=== PATIENT | female | born 1945 | race Caucasian/White ===

== ENCOUNTER → 2017-07-22 | Outpatient (CLI) | payer MEDICARE, BC ==
[~2017-07-22] MED LIST: AMLO10 PO; ATEN50 PO; BENAML20/5 PO; CALCAVITD PO; CHLO4 PO; CONESTTC PV; ESTR2 PO; FISH1000 PO; FOLI400 PO; GABA300 PO; GUAI600T33 PO; LANS30EC PO; MULVITMIND PO; NITR.6SL SL; RANI150 PO; SELENIUM PO; TRILIPIX; VALA500 PO; ZOLP10 PO
[2017-07-22 16:26] LABS: Albumin, Blood 3.5 g/dL (3.4-5.0); Anion Gap 8 mmol/L (6-16); Blood Urea Nitrogen 20 mg/dL (8-24); Bun/Creatinine Ratio 21.5 (12.0-20.0); CO2, Blood 23 mmol/L (21-32); Chloride, Blood 109 mmol/L (98-108); Creatinine, Blood 0.93 mg/dL (0.40-1.00); Glomerular Filtration Rate >60 (60-); Glucose, Blood 98 mg/dL (70-99); Phosphorus, Blood 3.2 mg/dL (2.5-4.9); Potassium, Blood 3.7 mmol/L (3.5-5.5); Sodium, Blood 140 mmol/L (136-145)
[2017-07-22 19:59] LABS: Protein, Urine Random 34.9 mg/dL (0.0-11.9)
== END ==
LOC: OLS 14:59
PROVIDERS: Internal Medicine
DX: N18.3 Chronic kidney disease, stage 3 (moderate) (principal)
CPT/HCPCS: 36415; 80069; 82570; 84156

== ENCOUNTER → 2018-03-13 | Outpatient (CLI) | payer MEDICARE, BC | END | disposition home or self-care (01) | LOC: LAB SHORT 16:38 → LAB 16:38 | DX: R30.0 Dysuria (principal) | CPT/HCPCS: 87086 ==

== ENCOUNTER 2019-12-06 00:52 | Observation (INO) | payer MEDICARE, BC ==
[~2019-12-06] VITALS: Ht 167.6 cm; Wt 79.1 kg
[~2019-12-06 00:52] MED LIST changes: +Amlodipine-Ben1 EACH PO; -BENAML20/5 PO; -CALCAVITD PO; +Calcium 600-D1 EACH PO; +FISH OIL 1,001000 MG PO; -FISH1000 PO; +Hair, Skin & N1 EACH PO; -MULVITMIND PO
[2019-12-06 01:27] LABS: BASOPHILS ABSOLUTE AUTO 0.03 K/mm3 (0.00-0.23); BASOPHILS PERCENT AUTO 1 % (0-2); EOSINOPHILS ABSOLUTE AUTO 0.24 K/mm3 (0.00-0.68); EOSINOPHILS PERCENT AUTO 4 % (0-6); Hematocrit 34.5 % (33.0-51.0); Hemoglobin 11.3 g/dL (11.5-16.0); IMMATURE GRAN PERCENT AUTO 0 % (0-1); LYMPHOCYTES PERCENT AUTO 52 % (21-46); MONOCYTES ABSOLUTE AUTO 0.47 K/mm3 (0.16-1.47); MONOCYTES PERCENT AUTO 8 % (4-13); Mean Corpuscular HGB 32.6 pg (26.0-34.0); Mean Corpuscular HGB Conc 32.8 g/dL (31.5-36.5); Mean Corpuscular Volume 99 fL (80-100); Mean Platelet Volume 11.2 fL (9.1-12.4); NEUTROPHILS ABSOLUTE AUTO 2.04 K/mm3 (1.96-9.15); NEUTROPHILS PERCENT AUTO 35 % (41-73); Platelet Count 317 K/mm3 (150-400); RDW Coefficient Variation 13.3 % (11.7-14.2); RDW Standard Deviation 48.3 fL (35.1-46.3); Red Blood Cell Count 3.47 M/mm3 (3.80-5.20); White Blood Cell Count 5.78 K/mm3 (4.00-11.30)
[2019-12-06 01:46] LABS: Alanine Aminotransfer (ALT/SGP 18 U/L (12-78); Albumin, Blood 3.6 g/dL (3.4-5.0); Albumin/Globulin Ratio 1.1 (0.8-1.8); Alk Phos 33 U/L (50-136); Anion Gap 7 mmol/L (6-16); Aspartate Aminotrans (AST/SGOT 19 U/L (12-37); Bilirubin, Total 0.3 mg/dL (0.1-1.0); Blood Urea Nitrogen 20 mg/dL (8-24); Bun/Creatinine Ratio 19.4 (12.0-20.0); CO2, Blood 25 mmol/L (21-32); Calcium, Blood 8.8 mg/dL (8.5-10.1); Chloride, Blood 111 mmol/L (98-108); Creatinine, Blood 1.03 mg/dL (0.40-1.00); Globulin, Blood 3.2 g/dL (2.2-4.0); Glomerular Filtration Rate 56 (60-); Glucose, Blood 121 mg/dL (70-99); Potassium, Blood 3.5 mmol/L (3.5-5.5); Sodium, Blood 143 mmol/L (136-145); Total Protein, Blood 6.8 g/dL (6.4-8.2); Troponin I <0.015 ng/mL (0.000-0.040)
[2019-12-06] MEDS ORDERED: FENOFIBRIC ACI135 MG PO (03:09)
[2019-12-06] MEDS ORDERED: ACYC800 PO (03:11)
[2019-12-06] MEDS ORDERED: HYDCHL25 PO (03:17)
[2019-12-06] MEDS ORDERED: GABA100 PO (04:22)
[2019-12-06] MEDS ORDERED: NITR.4SL PO (04:25)
[2019-12-06] MEDS ORDERED: ZOLP10 PO (04:26)
[2019-12-06] MEDS ORDERED: VALA500 PO (04:32)
--- NOTE | 2019-12-06 05:59 | NUR ---
12/06/19 0550 PT STABLE WITH VITALS AND HEART MONITOR AT "SR WITH FIRST DEGREE AT 65". PT IS SNORING AND APPEARS COMFORTABLE. VITALS STABLE. ONLY MILD CHEST DISCOMFORT AT LEVEL "3".
[2019-12-06 10:00] LABS: BASOPHILS ABSOLUTE AUTO 0.04 K/mm3 (0.00-0.23); BASOPHILS PERCENT AUTO 1 % (0-2); EOSINOPHILS PERCENT AUTO 6 % (0-6); Hemoglobin 11.8 g/dL (11.5-16.0); IMMATURE GRAN ABSOLUTE AUTO 0.01 K/mm3 (0.00-0.10); IMMATURE GRAN PERCENT AUTO 0 % (0-1); LYMPHOCYTES ABSOLUTE AUTO 2.37 K/mm3 (0.84-5.20); LYMPHOCYTES PERCENT AUTO 45 % (21-46); MONOCYTES ABSOLUTE AUTO 0.39 K/mm3 (0.16-1.47); MONOCYTES PERCENT AUTO 7 % (4-13); Mean Corpuscular HGB Conc 32.8 g/dL (31.5-36.5); Mean Corpuscular Volume 101 fL (80-100); Mean Platelet Volume 11.3 fL (9.1-12.4); NEUTROPHILS ABSOLUTE AUTO 2.17 K/mm3 (1.96-9.15); NEUTROPHILS PERCENT AUTO 41 % (41-73); Platelet Count 305 K/mm3 (150-400); RDW Coefficient Variation 13.4 % (11.7-14.2); RDW Standard Deviation 49.9 fL (35.1-46.3); Red Blood Cell Count 3.58 M/mm3 (3.80-5.20); White Blood Cell Count 5.28 K/mm3 (4.00-11.30)
[2019-12-06 10:28] LABS: Alanine Aminotransfer (ALT/SGP 17 U/L (12-78); Albumin, Blood 3.7 g/dL (3.4-5.0); Albumin/Globulin Ratio 1.2 (0.8-1.8); Alk Phos 31 U/L (50-136); Anion Gap 5 mmol/L (6-16); Aspartate Aminotrans (AST/SGOT 20 U/L (12-37); Bilirubin, Total 0.4 mg/dL (0.1-1.0); Blood Urea Nitrogen 15 mg/dL (8-24); Bun/Creatinine Ratio 17.8 (12.0-20.0); CO2, Blood 26 mmol/L (21-32); CPK Creatine Kinase 75 U/L (26-193); Calcium, Blood 8.8 mg/dL (8.5-10.1); Chloride, Blood 111 mmol/L (98-108); Creatinine, Blood 0.84 mg/dL (0.40-1.00); Globulin, Blood 3.2 g/dL (2.2-4.0); Glomerular Filtration Rate >60 (60-); Glucose, Blood 116 mg/dL (70-99); Potassium, Blood 3.3 mmol/L (3.5-5.5); Sodium, Blood 142 mmol/L (136-145); Total Protein, Blood 6.9 g/dL (6.4-8.2); Troponin I <0.015 ng/mL (0.000-0.040)
--- NOTE | 2019-12-06 12:17 | NUR ---
Upon receiving an admit referral for spiritual care, I visit patient. Patient immediately tells me about her medical condition, her young and her family. Patient tells me of the many deaths of family members and her prior . Patient talks about the many chances she has had to know bring hope and good news to people all over the world. Patient is full of light and gratitude. I listen empathically, reinforce helpful attitueds and practices and provide grief support, pastoral assistant corporation counsel and prayer. Patient responds well and shows signs of encouragement. I will continue to remain available to patient and family.
[2019-12-06] MEDS ORDERED: ASPI81CH PO (12:32)
--- NOTE | 2019-12-06 13:08 | NUR ---
DISCHARGE NOTE PT ALERT AND ORIENTED THROUGHOUT THIS SHIFT. PT STATED RESOLUTION OF CHEST PAIN EARLY IN THIS SHIFT WITH NO RECURRING EPISODES. IV REMOVED PRIOR TO DISCHARGE. PT PROVIDED DISCHARGE INSTRUCTIONS AND EDUCATION. PT STATES NO QUESTIONS AT THIS TIME. PT TRANSPORTED TO VEHICLE BY CINTIA Norris CNA, PROVIDING TRANSPORTION HOME.
== END 2019-12-06 13:01 | disposition home or self-care (01) ==
LOC: ER 00:52 → MEDS 00:53
PROVIDERS: Emergency Medicine; ADMIT Internal Medicine
DX: R07.89 Other chest pain (principal); I10 Essential (primary) hypertension; E78.5 Hyperlipidemia, unspecified; J30.9 Allergic rhinitis, unspecified; M54.2 Cervicalgia; G89.29 Other chronic pain; Z79.82 Long term (current) use of aspirin; Z79.899 Other long term (current) drug therapy; Z88.2 Allergy status to sulfonamides; Z88.5 Allergy status to narcotic agent; Z88.1 Allergy status to other antibiotic agents; Z88.8 Allergy status to other drugs, medicaments and biological substances
CPT/HCPCS: 36415; 71046; 80053; 82550; 83690; 84484; 85025; 93005; 93010; A9270; A9270-GY; J1650; J1885; J7030

== ENCOUNTER 2021-03-17 14:36 | Emergency (ER) | payer MEDICARE ==
[~2021-03-17] VITALS: Ht 167.6 cm; Wt 76.2 kg
[~2021-03-17 14:36] MED LIST changes: +ACYC800 PO; +ALLERGY-TIME4 MG; +ASPI81CH PO; +Aspirin EC81 MG PO; +CLOP75 PO; +Estradiol2 MG PO; +FENOFIBRIC ACI135 MG PO; +GABA100 PO; +HYDCHL25 PO; +LOTREL 10-40 M1 EACH PO; +MELA3 PO; +MULTIPLE VITAM1 EACH PO; +NITR.4SL PO; +NITR.4SL SL; +POTASSIUM GLUCO90 M1 PO; +Prevacid Soluta30 MG PO; +SENN187 PO; +Trilipix135 MG PO; +VITAMIN D350 MC2 PO; +[UNRECOGNIZED DRUG - OTHER] PO
== END 2021-03-17 17:41 | disposition home or self-care (01) ==
LOC: ER 14:36
DX: U07.1 COVID-19 (principal); I10 Essential (primary) hypertension; J45.909 Unspecified asthma, uncomplicated; Z88.1 Allergy status to other antibiotic agents; Z88.8 Allergy status to other drugs, medicaments and biological substances; Z88.0 Allergy status to penicillin; Z88.2 Allergy status to sulfonamides; Z88.5 Allergy status to narcotic agent; Z79.899 Other long term (current) drug therapy; Z79.02 Long term (current) use of antithrombotics/antiplatelets; Z79.82 Long term (current) use of aspirin
CPT/HCPCS: 99282-25; M0243; Q0243

== ENCOUNTER 2022-11-13 10:10 | Observation (INO) | payer MEDICARE ==
[2022-11-13] VITALS (8 sets, daily range): BP systolic 92–177; BP diastolic 59–123
[~2022-11-13] VITALS: Ht 167.6 cm; Wt 80.0 kg
[2022-11-13 10:49] LABS: BASOPHILS ABSOLUTE AUTO 0.03 K/mm3 (0.00-0.23); BASOPHILS PERCENT AUTO 1 % (0-2); EOSINOPHILS ABSOLUTE AUTO 0.16 K/mm3 (0.00-0.68); EOSINOPHILS PERCENT AUTO 3 % (0-6); Hematocrit 35.4 % (33.0-51.0); Hemoglobin 12.4 g/dL (11.5-16.0); IMMATURE GRAN PERCENT AUTO 0 % (0-1); LYMPHOCYTES ABSOLUTE AUTO 1.89 K/mm3 (0.84-5.20); LYMPHOCYTES PERCENT AUTO 34 % (21-46); MONOCYTES ABSOLUTE AUTO 0.45 K/mm3 (0.16-1.47); MONOCYTES PERCENT AUTO 8 % (4-13); Mean Corpuscular HGB 33.2 pg (26.0-34.0); Mean Corpuscular Volume 95 fL (80-100); NEUTROPHILS ABSOLUTE AUTO 3.04 K/mm3 (1.96-9.15); NEUTROPHILS PERCENT AUTO 55 % (41-73); Platelet Count 351 K/mm3 (150-400); RDW Coefficient Variation 12.7 % (11.7-14.2); RDW Standard Deviation 43.8 fL (35.1-46.3); Red Blood Cell Count 3.73 M/mm3 (3.80-5.20); White Blood Cell Count 5.57 K/mm3 (4.00-11.30)
[2022-11-13 11:05] LABS: Albumin, Blood 3.6 g/dL (3.4-5.0); Albumin/Globulin Ratio 1.1 (0.8-1.8); Bilirubin, Total 0.5 mg/dL (0.1-1.0); Bun/Creatinine Ratio 19.6 (12.0-20.0); Creatinine, Blood 1.02 mg/dL (0.40-1.00); Globulin, Blood 3.4 g/dL (2.2-4.0); Magnesium, Blood 2.2 mg/dL (1.6-2.4)
[2022-11-13] MEDS ORDERED: VALA500 PO (13:45)
[2022-11-13] MEDS ORDERED: AMLO10 PO (13:46)
[2022-11-13] MEDS ORDERED: ESTRADIOL1 MG PO (13:46)
[2022-11-13] MEDS ORDERED: Halcion0.25 MG PO (13:46)
[2022-11-13] MEDS ORDERED: FENOFIBRIC ACI135 MG PO (13:48)
[2022-11-13 14:32] LABS: CHOL/HDL RATIO 2.5; Cholesterol 157 mg/dL (50-200); HDL Cholesterol 62 mg/dL (>39); LDL/HDL RATIO 1.3; Low Density Lipoprotein Chol 80 mg/dL (0-110); Triglycerides 75 mg/dL (30-160); Very Low Density Lipoprot Chol 15 mg/dL (6-32)
[2022-11-13 14:46] LABS: Anti-Xa UFH, PHA Monitoring <0.10 IU/mL; International Normalized Ratio 0.98; Prothrombin Time Results 10.3 Sec (9.7-11.5)
--- NOTE | 2022-11-13 14:48 | NUR ---
REPORT RECIEVED FROM ED RN AT [id number].
--- NOTE | 2022-11-13 14:53 | NUR ---
JUAN RN FROM ED INFORMED THIS RN THAT PT IS HEADED TO REGISTRATION REP AND WILL COME TO PCU POST PROCEDURE.
--- NOTE | 2022-11-13 18:09 | NUR ---
2ML REMOVED FROM TR BAND. SITE C/D/I. SOME TENDERNESS REPORTED NEAR SITE. NO HEMOTOMA NOTED.
--- NOTE | 2022-11-13 18:47 | NUR ---
PT ARRIVED TO PCU AT 1615 FROM [facility] VIA HOSPITAL BED AND ON RA. TR BAND IN PLACE OF RIGHT RADIAL STITE, WNL. PT ORIENTED TO ROOM. PT REPORTING LEFT ARM PAIN SINCE ARRIVAL FROM [employer] [facility]. PAIN APPEARS TO BE ONLY OF THE LEFT ARM, NOT REPORTING CHEST PAIN. NO REPORT OF SOB AT THIS TIME. PT SB UPON ARRIVAL TO UNIT IN THE 50-60'S. PT ABLE TO AMBULATE TO BEDSIDE COMMODE [facility]YANN [employer]IMAL ASSISTANCE, SBA.
[2022-11-14 03:59] VITALS: BP 121/55
[2022-11-14 04:03] LABS: BASOPHILS ABSOLUTE AUTO 0.02 K/mm3 (0.00-0.23); BASOPHILS PERCENT AUTO 0 % (0-2); EOSINOPHILS ABSOLUTE AUTO 0.14 K/mm3 (0.00-0.68); EOSINOPHILS PERCENT AUTO 3 % (0-6); Hematocrit 31.9 % (33.0-51.0); Hemoglobin 10.7 g/dL (11.5-16.0); IMMATURE GRAN PERCENT AUTO 0 % (0-1); LYMPHOCYTES PERCENT AUTO 35 % (21-46); MONOCYTES ABSOLUTE AUTO 0.42 K/mm3 (0.16-1.47); MONOCYTES PERCENT AUTO 9 % (4-13); Mean Corpuscular HGB 32.4 pg (26.0-34.0); Mean Corpuscular HGB Conc 33.5 g/dL (31.5-36.5); Mean Corpuscular Volume 97 fL (80-100); Mean Platelet Volume 10.9 fL (9.1-12.4); NEUTROPHILS ABSOLUTE AUTO 2.44 K/mm3 (1.96-9.15); NEUTROPHILS PERCENT AUTO 53 % (41-73); Platelet Count 291 K/mm3 (150-400); RDW Coefficient Variation 12.9 % (11.7-14.2); RDW Standard Deviation 45.7 fL (35.1-46.3); White Blood Cell Count 4.62 K/mm3 (4.00-11.30)
[2022-11-14 04:25] LABS: Albumin, Blood 3.1 g/dL (3.4-5.0); Albumin/Globulin Ratio 1.1 (0.8-1.8); Bilirubin, Total 0.4 mg/dL (0.1-1.0); Bun/Creatinine Ratio 20.5 (12.0-20.0); Calcium, Blood 8.6 mg/dL (8.5-10.1); Creatinine, Blood 1.12 mg/dL (0.40-1.00); Globulin, Blood 2.9 g/dL (2.2-4.0); Potassium, Blood 3.5 mmol/L (3.5-5.5)
--- NOTE | 2022-11-14 04:44 | NUR ---
SHIFT SUMMARY NO ACUTE CHANGES. VSS. TR BAND FULLY DEFLATED AND REMOVED W/O INCIDENT. SITE WITH ECCHYMOSIS BUT NO NOTED HEMATOMA. ARMBOARD REMAINS IN PLACE. PT HAS HAD SOME INTERMITTENT CHEST PAIN THIS SHIFT THAT RESOLVES ON ITS OWN. PT SATES SIMILAR PAIN TO PRE STENT. NO CHANGES OTHERWISE. BED ALRM IN PACE. CALL LIGHT WITHIN REACH.
[2022-11-14 08:10] VITALS: BP 134/71
[2022-11-14 13:41] VITALS: BP 130/58
[2022-11-14] MEDS ORDERED: AMLO5 PO (15:07)
[2022-11-14] MEDS ORDERED: ASPI81CH PO (15:07)
[2022-11-14] MEDS ORDERED: ATOR40TA PO (15:08)
[2022-11-14] MEDS ORDERED: Isosorbide Mono30 MG PO (15:08)
[2022-11-14 15:23] VITALS: BP 126/62
--- NOTE | 2022-11-14 16:16 | NUR ---
DISCHARGE SUMMARY ALERT, ORIENTED, INDEPENDENT. REPORTS INTERMITTENT CP, JAN SOB. NON-REPRODUCABLE. ECHO WITHOUT SIGNIFICANT PROBLEM. MANUEL ON TELE, OTHER VSS. R RADIAL SITE WNL. TOLERATING CARDIAC DIET AND LIQUIDS. VOIDING WELL. DISCHARGE ORDERS GIVEN. DISCHARGE EDUCATION GIVEN ON NEW MEDS, SIGNS AND SYMPTOMS TO CALL OR RETURN TO ER, FOLLOW UP WITH PC TO GET REFERRAL TO CARDIOLOGY. IV'S DC' WNL. PATIENT LEFT UNIT AT 1545 VIA WHEELCHAIR WITH SPOUSE FOR HOME.
== END 2022-11-14 15:43 | disposition home or self-care (01) ==
LOC: ER 10:10 → PCU 13:27
PROVIDERS: Emergency Medicine; ADMIT Hospitalist
DX: I24.9 Acute ischemic heart disease, unspecified (principal); I25.110 Atherosclerotic heart disease of native coronary artery with unstable angina pectoris; E87.6 Hypokalemia; I12.9 Hypertensive chronic kidney disease with stage 1 through stage 4 chronic kidney disease, or unspecified chronic kidney disease; N18.30 Chronic kidney disease, stage 3 unspecified; J45.909 Unspecified asthma, uncomplicated; R73.03 Prediabetes; E78.5 Hyperlipidemia, unspecified; K25.9 Gastric ulcer, unspecified as acute or chronic, without hemorrhage or perforation; M54.2 Cervicalgia; G89.29 Other chronic pain; Z88.5 Allergy status to narcotic agent; Z88.0 Allergy status to penicillin; Z88.1 Allergy status to other antibiotic agents; Z88.8 Allergy status to other drugs, medicaments and biological substances; Z79.899 Other long term (current) drug therapy
CPT/HCPCS: 36415; 71046; 76937; 80053; 80061; 83036; 83735; 83880; 84484; 85025; 85520; 85610; 85730; 93005; 93010; 93306; 93454; 96374; 96375; 96376; 99152; 99285-25; A9270; C1769; C1887; C1894; J1644; J2250; J2405; J3480; J7030; J7050; Q9967

== ENCOUNTER 2024-03-08 16:31 | Emergency (ER) | payer MEDICARE ==
[~2024-03-08] VITALS: Ht 167.6 cm; Wt 79.4 kg
[2024-03-08 18:50] LABS: Influenza A, PCR NEGATIVE (NEGATIVE); Influenza B, PCR NEGATIVE (NEGATIVE); Resp Syncytial Virus, PCR NEGATIVE (NEGATIVE); SARS-Cov-2 (COVID-19) PCR, MMC NEGATIVE (NEGATIVE)
[2024-03-08 18:57] VITALS: BP 155/98
== END 2024-03-08 19:06 | disposition home or self-care (01) ==
LOC: ER 16:31
PROVIDERS: Emergency Medicine
DX: B34.9 Viral infection, unspecified (principal); J45.909 Unspecified asthma, uncomplicated; R79.1 Abnormal coagulation profile; R89.9 Unspecified abnormal finding in specimens from other organs, systems and tissues; M47.814 Spondylosis without myelopathy or radiculopathy, thoracic region; I25.10 Atherosclerotic heart disease of native coronary artery without angina pectoris; J98.11 Atelectasis; R07.89 Other chest pain; R53.83 Other fatigue; Z79.899 Other long term (current) drug therapy; Z88.8 Allergy status to other drugs, medicaments and biological substances; Z88.1 Allergy status to other antibiotic agents; Z88.5 Allergy status to narcotic agent; Z88.0 Allergy status to penicillin; Z88.2 Allergy status to sulfonamides; Z90.49 Acquired absence of other specified parts of digestive tract
CPT/HCPCS: 0241U; 71046; 80053; 83735; 84443; 84484; 85025; 85379; 93005; 93010; 99285-25

== ENCOUNTER → 2024-03-08 | Outpatient (CLI) | payer MEDICARE ==
[~2024-03-08] MED LIST changes: +AMLO5 PO; +ATOR40TA PO; +ESTRADIOL1 MG PO; +Halcion0.25 MG PO; +Isosorbide Mono30 MG PO
[2024-03-08 11:27] LABS: BASOPHILS ABSOLUTE AUTO 0.03 K/mm3 (0.00-0.23); BASOPHILS PERCENT AUTO 1 % (0-2); EOSINOPHILS ABSOLUTE AUTO 0.26 K/mm3 (0.00-0.68); EOSINOPHILS PERCENT AUTO 4 % (0-6); Hematocrit 39.1 % (33.0-51.0); Hemoglobin 13.1 g/dL (11.5-16.0); IMMATURE GRAN PERCENT AUTO 0 % (0-1); LYMPHOCYTES ABSOLUTE AUTO 2.24 K/mm3 (0.84-5.20); LYMPHOCYTES PERCENT AUTO 37 % (21-46); MONOCYTES ABSOLUTE AUTO 0.47 K/mm3 (0.16-1.47); MONOCYTES PERCENT AUTO 8 % (4-13); Mean Corpuscular HGB 32.8 pg (26.0-34.0); Mean Corpuscular HGB Conc 33.5 g/dL (31.5-36.5); Mean Corpuscular Volume 98 fL (80-100); NEUTROPHILS ABSOLUTE AUTO 3.09 K/mm3 (1.96-9.15); NEUTROPHILS PERCENT AUTO 51 % (41-73); Platelet Count 283 K/mm3 (150-400); RDW Coefficient Variation 13.2 % (11.7-14.2); RDW Standard Deviation 47.1 fL (35.1-46.3); White Blood Cell Count 6.09 K/mm3 (4.00-11.30)
[2024-03-08 11:52] LABS: Albumin, Blood 3.3 g/dL (3.4-5.0); Albumin/Globulin Ratio 0.9 (0.8-1.8); Bilirubin, Total 0.4 mg/dL (0.1-1.0); Bun/Creatinine Ratio 20.2 (12.0-20.0); Calcium, Blood 9.2 mg/dL (8.5-10.1); Creatinine, Blood 0.84 mg/dL (0.40-1.00); Globulin, Blood 3.8 g/dL (2.2-4.0); Potassium, Blood 3.7 mmol/L (3.5-5.5); Thyroid Stimulating Hormone 4.47 uIU/mL (0.360-4.800); Total Protein, Blood 7.1 g/dL (6.4-8.2)
== END | disposition home or self-care (01) ==
LOC: LAB SHORT 11:23 → LAB 11:23
PROVIDERS: Chiropractor
DX: R53.83 Other fatigue (principal); R07.89 Other chest pain
CPT/HCPCS: 80053; 83735; 84443; 84484; 85025; 85379

== ENCOUNTER → 2024-03-09 | Outpatient (CLI) | payer MEDICARE | END | disposition home or self-care (01) | LOC: LAB 18:22 → LAB SHORT 18:22 | DX: R30.0 Dysuria (principal) | CPT/HCPCS: 87086 ==

== ENCOUNTER 2025-03-11 18:48 | Observation (INO) | payer MEDICARE ==
[~2025-03-11] VITALS: Ht 170.2 cm; Wt 74.9 kg
[2025-03-11 19:56] LABS: BASOPHILS ABSOLUTE AUTO 0.04 K/mm3 (0.00-0.23); BASOPHILS PERCENT AUTO 1 % (0-2); EOSINOPHILS ABSOLUTE AUTO 0.29 K/mm3 (0.00-0.68); EOSINOPHILS PERCENT AUTO 5 % (0-6); Hematocrit 40.5 % (33.0-51.0); Hemoglobin 13.8 g/dL (11.5-16.0); IMMATURE GRAN ABSOLUTE AUTO 0.00 K/mm3 (0.00-0.10); IMMATURE GRAN PERCENT AUTO 0 % (0-1); LYMPHOCYTES ABSOLUTE AUTO 2.38 K/mm3 (0.84-5.20); LYMPHOCYTES PERCENT AUTO 40 % (21-46); MONOCYTES ABSOLUTE AUTO 0.37 K/mm3 (0.16-1.47); MONOCYTES PERCENT AUTO 6 % (4-13); Mean Corpuscular HGB Conc 34.1 g/dL (31.5-36.5); Mean Corpuscular Volume 96 fL (80-100); NEUTROPHILS ABSOLUTE AUTO 2.87 K/mm3 (1.96-9.15); NEUTROPHILS PERCENT AUTO 48 % (41-73); NRBC ABSOLUTE 0.00 K/mm3 (0.00-0.02); NRBC Auto 0.0 /100 WBC (0.0-0.2); Platelet Count 304 K/mm3 (150-400); RDW Coefficient Variation 13.2 % (11.7-14.2); RDW Standard Deviation 46.9 fL (35.1-46.3)
[2025-03-11 20:04] LABS: Alanine Aminotransfer (ALT/SGP 18.0 U/L (12-78); Albumin, Blood 3.7 g/dL (3.4-5.0); Albumin/Globulin Ratio 1.0 (0.8-1.8); Anion Gap 8.0 mmol/L (3-11); Aspartate Aminotrans (AST/SGOT 21.0 U/L (12-37); Bilirubin, Total 0.3 mg/dL (0.1-1.0); Blood Urea Nitrogen 14.0 mg/dL (8-24); CO2, Blood 28.0 mmol/L (21-32); Calcium, Blood 9.5 mg/dL (8.5-10.1); Chloride, Blood 107.0 mmol/L (98-108); Creatinine, Blood 0.71 mg/dL (0.40-1.00); Globulin, Blood 3.8 g/dL (2.2-4.0); Glucose, Blood 107.0 mg/dL (70-99); Potassium, Blood 3.2 mmol/L (3.5-5.5); Sodium, Blood 140.0 mmol/L (136-145); Total Protein, Blood 7.5 g/dL (6.4-8.2)
[2025-03-11] MEDS ORDERED: Ondansetron HCl 2 MG / ML 2ML Vial IV PRN (23:00)
[2025-03-11] MEDS ORDERED: HydrALAZINE HCl 20 MG / ML 1ML Vial IV PRN (23:05)
[2025-03-11 23:28] LABS: Magnesium, Blood 2.2 mg/dL (1.6-2.4); Phosphorus, Blood 3.0 mg/dL (2.5-4.9)
[2025-03-12] VITALS (19 sets, daily range): BP systolic 105–192; BP diastolic 65–100
[2025-03-12] MEDS ORDERED: HydrALAZINE HCl 20 MG / ML 1ML Vial IV ONE (03:15)
[2025-03-12 04:01] LABS: BASOPHILS ABSOLUTE AUTO 0.03 K/mm3 (0.00-0.23); BASOPHILS PERCENT AUTO 0 % (0-2); EOSINOPHILS ABSOLUTE AUTO 0.23 K/mm3 (0.00-0.68); EOSINOPHILS PERCENT AUTO 3 % (0-6); Hematocrit 40.3 % (33.0-51.0); Hemoglobin 14.2 g/dL (11.5-16.0); IMMATURE GRAN ABSOLUTE AUTO 0.01 K/mm3 (0.00-0.10); IMMATURE GRAN PERCENT AUTO 0 % (0-1); LYMPHOCYTES ABSOLUTE AUTO 2.25 K/mm3 (0.84-5.20); LYMPHOCYTES PERCENT AUTO 27 % (21-46); MONOCYTES ABSOLUTE AUTO 0.52 K/mm3 (0.16-1.47); MONOCYTES PERCENT AUTO 6 % (4-13); Mean Corpuscular HGB Conc 35.2 g/dL (31.5-36.5); Mean Corpuscular Volume 94 fL (80-100); NEUTROPHILS ABSOLUTE AUTO 5.35 K/mm3 (1.96-9.15); NEUTROPHILS PERCENT AUTO 64 % (41-73); NRBC ABSOLUTE 0.00 K/mm3 (0.00-0.02); NRBC Auto 0.0 /100 WBC (0.0-0.2); Platelet Count 387 K/mm3 (150-400); RDW Coefficient Variation 13.4 % (11.7-14.2); RDW Standard Deviation 45.9 fL (35.1-46.3)
[2025-03-12 04:21] LABS: Alanine Aminotransfer (ALT/SGP 19.0 U/L (12-78); Albumin, Blood 3.9 g/dL (3.4-5.0); Albumin/Globulin Ratio 1.1 (0.8-1.8); Anion Gap 9.0 mmol/L (3-11); Aspartate Aminotrans (AST/SGOT 22.0 U/L (12-37); Bilirubin, Total 0.7 mg/dL (0.1-1.0); Blood Urea Nitrogen 11.0 mg/dL (8-24); CO2, Blood 23.0 mmol/L (21-32); Calcium, Blood 9.1 mg/dL (8.5-10.1); Chloride, Blood 112.0 mmol/L (98-108); Creatinine, Blood 0.64 mg/dL (0.40-1.00); Globulin, Blood 3.6 g/dL (2.2-4.0); Glucose, Blood 122.0 mg/dL (70-99); Potassium, Blood 3.6 mmol/L (3.5-5.5); Sodium, Blood 140.0 mmol/L (136-145); Total Protein, Blood 7.5 g/dL (6.4-8.2)
--- NOTE | 2025-03-12 05:40 | NUR ---
ARRIVAL TO ICU 6: PT ARRIVED TO ICU VIA GURNEY, ABLE TO STAND AND TRANSFER TO BED. PT A/Ox4 AND ABLE TO MAKE NEEDS KNOWN. SBP 200s ON ARRIVAL, NOTIFIED DR. STODDARD, NEW ORDERS GIVEN. MONITOR SHOWS SINUS RYTHM TO SINUS TACH, RATE 80-100s. SPO2>95% ON RA. PT ABLE TO TRANSFER SBA TO TOILET, CALLS APPROPRIATELY. 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 PIC IN CHART. WHEN COMPLETING MED REC, PT STATES SHE NO LONGER TAKES ANY OF THE MEDICATIONS IN HER MED REC, INCLUDING HER HTN MEDICATIONS, STATES HER PCP IS AWARE. CALL LIGHT IN REACH. WILL UPDATE NEEDED.
[2025-03-12] MEDS ORDERED: Isosorbide Mononitrate 30 MG TABCR PO SCH (09:00)
[2025-03-12] MEDS ORDERED: TIZA4 PO (09:20)
--- NOTE | 2025-03-12 09:47 | NUR ---
ASSUMPTION OF CARE ASSUMED CARE OF PATIENT AT 0700 WITH JAMMIE ZENDEJAS, RECIEVED REPORT FROM LAUREN ZENDEJAS. PT IS A&O X4 ABLE TO MAKE NEEDS KNOWN, AFEBRILE, AND CAN MOVE EXTREMITIES EQUALLY AND BILATERALLY. CONTINUOUS CARDIAC MONITORING IN PLACE SHOWING SINUS RHYTHM WITH A FHB, HR IN THE 90'S, AND MAP >65. PT IS ON ROOM AIR WITH SP02 >92%. PT IS SBA TO THE BATHROOM. PIV IS IN PLACE TO LAC. CALL LIGHT IN REACH, CARE CONTINUES.
--- NOTE | 2025-03-12 11:17 | NUR ---
TRANSFER TO PCU PT TRANSFERED TO PCU VIA WHEELCHAIR, TRANSFERED TO PCU BED VIA SBA. PT REMAINED ALERT AND ORIENTED, VSS. ALL PT BELONGINGS TRANSFERED WITH PT. PT DICK PRESENT FOR TRANFER.
[2025-03-12] MEDS ORDERED: HYDCHL25 PO (15:25)
[2025-03-12] MEDS ORDERED: LISI20 PO (15:25)
[2025-03-12] MEDS ORDERED: POTA10T PO (15:26)
--- NOTE | 2025-03-12 16:26 | NUR ---
PHYSICIAN NOTIFICATION: PT SBP 180'S, MADE AWARE. ORDERS TO GIVE 20MG OF LISINOPRIL AND TO CONTINUE WITH DISCHARGE PLANS.
--- NOTE | 2025-03-12 17:04 | NUR ---
DISCHARGE NOTE: PT IS ALERT AND ORIENTED X 4, DENIES CHEST PAIN/SOB/DIZZINESS. PT REMAINS ON RA WITH NO RESP DISTRESS NOTED. DISCHARGE EDUCATION/INSTRUCTIONS READ TO PATIENT AND SPOUSE DICK. PT AND SPOUSE STATED THEY UNDERSTOOD DISCHARGE INSTRUCTIONS. PT STATED SHE HAD " NO CONCERNS" PT AWARE SHE SHOULD SEEK MEDICAL TREATMENT IF S/S WORSEN. IV REMOVED. BELONGINGS (PINK SHIRT, PINK PANTS AND PINK SHOES, GLASSESS) RETURNED TO PT. PT DISCHARGED VIA WHEELCHAIR.
== END 2025-03-12 16:48 | disposition home or self-care (01) ==
LOC: ER 18:48 → ICUE 18:49 → PCU 03-12 11:09
PROVIDERS: Student in an Organized Health Care Education/Training Program; ADMIT Internal Medicine
DX: I16.0 Hypertensive urgency (principal); I25.10 Atherosclerotic heart disease of native coronary artery without angina pectoris; I10 Essential (primary) hypertension; G62.9 Polyneuropathy, unspecified; I73.9 Peripheral vascular disease, unspecified; N39.0 Urinary tract infection, site not specified; J45.909 Unspecified asthma, uncomplicated; Z79.82 Long term (current) use of aspirin; Z79.899 Other long term (current) drug therapy; Z88.1 Allergy status to other antibiotic agents; Z88.2 Allergy status to sulfonamides; Z88.5 Allergy status to narcotic agent; Z95.5 Presence of coronary angioplasty implant and graft
CPT/HCPCS: 36415; 70450; 71046; 80053; 83735; 83880; 84100; 84484; 85025; 93005; 93010; 93306; 96374; 96375; 96376; 99285-25; A9270; G0378; J0360; J3480; J7050

== ENCOUNTER 2025-03-26 10:30 | Emergency (ER) | payer MEDICARE ==
[~2025-03-26] VITALS: Ht 175.3 cm; Wt 68.0 kg
[~2025-03-26 10:30] MED LIST changes: +LISI20 PO; +POTA10T PO; +TIZA4 PO
[2025-03-26 11:10] VITALS: BP 112/75
[2025-03-26 11:12] LABS: BASOPHILS ABSOLUTE AUTO 0.04 K/mm3 (0.00-0.23); BASOPHILS PERCENT AUTO 1 % (0-2); EOSINOPHILS ABSOLUTE AUTO 0.30 K/mm3 (0.00-0.68); EOSINOPHILS PERCENT AUTO 5 % (0-6); Hematocrit 40.1 % (33.0-51.0); Hemoglobin 13.7 g/dL (11.5-16.0); IMMATURE GRAN ABSOLUTE AUTO 0.00 K/mm3 (0.00-0.10); IMMATURE GRAN PERCENT AUTO 0 % (0-1); LYMPHOCYTES ABSOLUTE AUTO 2.37 K/mm3 (0.84-5.20); LYMPHOCYTES PERCENT AUTO 41 % (21-46); MONOCYTES ABSOLUTE AUTO 0.39 K/mm3 (0.16-1.47); MONOCYTES PERCENT AUTO 7 % (4-13); Mean Corpuscular HGB Conc 34.2 g/dL (31.5-36.5); Mean Corpuscular Volume 96 fL (80-100); NEUTROPHILS ABSOLUTE AUTO 2.75 K/mm3 (1.96-9.15); NEUTROPHILS PERCENT AUTO 47 % (41-73); NRBC ABSOLUTE 0.00 K/mm3 (0.00-0.02); NRBC Auto 0.0 /100 WBC (0.0-0.2); Platelet Count 332 K/mm3 (150-400); RDW Coefficient Variation 12.9 % (11.7-14.2); RDW Standard Deviation 45.2 fL (35.1-46.3)
[2025-03-26 11:25] LABS: Alanine Aminotransfer (ALT/SGP 25.0 U/L (12-78); Albumin, Blood 3.7 g/dL (3.4-5.0); Albumin/Globulin Ratio 1.1 (0.8-1.8); Anion Gap 8.0 mmol/L (3-11); Aspartate Aminotrans (AST/SGOT 21.0 U/L (12-37); Bilirubin, Total 0.6 mg/dL (0.1-1.0); Blood Urea Nitrogen 32.0 mg/dL (8-24); CO2, Blood 32.0 mmol/L (21-32); Calcium, Blood 9.9 mg/dL (8.5-10.1); Chloride, Blood 103.0 mmol/L (98-108); Creatinine, Blood 1.0 mg/dL (0.40-1.00); Globulin, Blood 3.5 g/dL (2.2-4.0); Glucose, Blood 119.0 mg/dL (70-99); Potassium, Blood 3.4 mmol/L (3.5-5.5); Sodium, Blood 140.0 mmol/L (136-145); Total Protein, Blood 7.2 g/dL (6.4-8.2)
== END 2025-03-26 15:58 | disposition home or self-care (01) ==
LOC: ER 10:30
PROVIDERS: Emergency Medicine
DX: R07.9 Chest pain, unspecified (principal); I10 Essential (primary) hypertension
CPT/HCPCS: 71046; 80053; 83690; 84484; 85025; 93005; 93010; 99284-25